=== PATIENT | male | born 1995 | race Caucasian/White ===

== ENCOUNTER 2020-03-11 15:39 | Emergency (ER) | payer SELFPAY ==
[~2020-03-11] VITALS: Ht 185.4 cm; Wt 90.7 kg
[2020-03-11 15:41] VITALS: BP 128/73
[2020-03-11] MEDS ORDERED: DIAZEPAM 5 MG TAB PO ONE (15:45)
[2020-03-11] MEDS ORDERED: KETOROLAC 30 MG/ML VIAL IM ONE (15:45)
[2020-03-11 16:43] VITALS: BP 128/73
== END 2020-03-11 16:42 | disposition home or self-care (01) ==
LOC: MED 15:39
DX: S39.012A Strain of muscle, fascia and tendon of lower back, initial encounter (principal); S43.491A Other sprain of right shoulder joint, initial encounter; V49.3XXA Car occupant (driver) (passenger) injured in unspecified nontraffic accident, initial encounter; F12.10 Cannabis abuse, uncomplicated; Y93.89 Activity, other specified; Y92.89 Other specified places as the place of occurrence of the external cause; Y99.8 Other external cause status
CPT/HCPCS: 71046; 72100; 99284